=== PATIENT | male | born 1980 | race Caucasian/White ===

== ENCOUNTER 2020-02-05 02:27 | Emergency (ER) | payer BC, SELFPAY ==
[2020-02-05] MEDS ORDERED: Silver Sulfadiazine 50 GM TUBE ONE (02:42)
[2020-02-05] MEDS ORDERED: Ketorolac Tromethamine 30 MG/ML VIAL ONE (03:05)
== END 2020-02-05 03:30 | disposition home or self-care (01) ==
LOC: ERS 02:27
DX: T22.311A Burn of third degree of right forearm, initial encounter (principal); T22.321A Burn of third degree of right elbow, initial encounter; T20.10XA Burn of first degree of head, face, and neck, unspecified site, initial encounter; W40.1XXA Explosion of explosive gases, initial encounter
CPT/HCPCS: 16020; 96372; J1885